=== PATIENT | male | born 1940 | race Caucasian/White ===

== ENCOUNTER → 2018-10-26 | Outpatient (CLI) | payer OTHER | LOC: FIMAGING 10:34 | PROVIDERS: ATTEND Orthopaedic Surgery | DX: Z01.818 Encounter for other preprocedural examination (principal); M17.12 Unilateral primary osteoarthritis, left knee ==

== ENCOUNTER 2018-11-10 05:35 | Observation (INO) | payer OTHER ==
--- NOTE | 2018-10-29 11:38 | GHP ---
He will be an a.m. admission for surgery at [facility] on November 10, 2018. PROBLEM: Left knee arthritis. HISTORY OF PRESENT ILLNESS: The patient is a 78-year-old man admitted for a left total knee arthropl asty. He has been receiving viscosupplementation injections every 6 months for the past few years. The most recent set of injections did not help. He is having increasing pain in his left knee. He h as been using ibuprofen. He had arthroscopic surgery on his left knee in the mid 1970s. He has trie d an claim rep brace. His activities are now very limited because of his left knee pain. He has fail ed nonsurgical treatment and is admitted for a left total knee arthroplasty. PAST MEDICAL HISTORY: He underwent an L3 through L5 lumbar spine fusion in 2013. He is treated for hypothyroidism, cholesterol, and type 2 diabetes. No history of heart disease, stents, DVT, hepatiti s, MRSA staph infection, sleep apnea, or bleeding problems. CURRENT MEDICATIONS: Levothyroxine 175 mcg per day, lovastatin 40 mg per day, metformin extended rel ease 750 mg per day. One baby aspirin per day; he stopped that 5 days in advance of his surgery. ALLERGIES: At age 10, he had some type of reaction to a "mycin" antibiotic. Metal allergy: None. Latex allergy: None. SOCIAL HISTORY: The patient is . He is retired. He does not smoke cigarettes and rarely dri nks alcohol. FAMILY HISTORY: Positive for heart disease. PHYSICAL EXAMINATION: VITAL SIGNS: Height 5 feet 11 inches. Weight 186 pounds. BMI 26.72. EYES: The conjunctivae and sclerae are clear. Pupils are round and reactive. MOUTH: Good oral hygiene. No loose teeth. CHEST: Clear. HEART: Regular rhythm. No murmurs. EXTREMITIES: Pertinent findin gs limited to his left knee. He has a 5-degree flexion contracture and further flexion to 105 degree s. Varus deformity. A small effusion is present. His ligaments are stable. IMAGING: His films show advanced degenerative arthritis in his left knee, primarily involving the me dial compartment. He is bone on bone in the medial compartment. He has moderate medial compartment cartilage space narrowing in the right knee. IMPRESSION: On admission: 1. Left knee advanced medial compartment degenerative arthritis with varus deformity. 2. Treatment for hypothyroidism. 3. Treatment for type 2 diabetes. 4. Treatment for cholesterol. 5. Status post L3 through L5 lumbar spine fusion. PLAN: He will undergo a left total knee arthroplasty. The surgery has been described to him, includ ing the risks, complications, expectations, and recovery time. I stressed the importance of postoper ative physical therapy. I have advised him that a small percentage of people do not get a good resul t with a total knee replacement, and sometimes that cannot be corrected. All his questions have been answered, and he consents to surgery. /[id number]/MODL
[2018-11-10] MEDS ORDERED: DEXAMETHASONE 4 MG/ML VIAL IVP ONE (05:51)
[2018-11-10] MEDS ORDERED: ceFAZolin 2 GM/DEXTROSE 100 ML IV ONE (05:51)
[2018-11-10] MEDS ORDERED: FAMOTIDINE 20 MG TAB PO ONE (05:51)
[2018-11-10] MEDS ORDERED: ACETAMINOPHEN 325 MG TAB PO ONE (05:51)
[2018-11-10] MEDS ORDERED: ONDANSETRON 4 MG/2 ML VIAL IVP ONE (05:51)
[2018-11-10] MEDS ORDERED: GABAPENTIN 300 MG CAP PO ONE (05:51)
[2018-11-10] MEDS ORDERED: POVIDONE-IODINE 20 ML in SODIUM CL IRRIG SOLUTION 500 ML IRR ONE (06:00)
[2018-11-10] MEDS ORDERED: LR 1,000 ML IV ONE (06:05)
[2018-11-10] MEDS ORDERED: TRANEXAMIC ACID 3,000 MG/50 ML BAG IRR ONE (06:52)
[2018-11-10] MEDS ORDERED: VANCOMYCIN 1 GM VIAL ONE (06:52)
[2018-11-10] MEDS ORDERED: ceFAZolin 1 GM/5 ML SYR ONE (06:53)
[2018-11-10] MEDS ORDERED: MIDAZOLAM 2 MG/2 ML VIAL IVP ONE (07:01)
--- NOTE | 2018-11-10 07:01 | PDANEPAE ---
ANE Past Medical History - Cardiovascular History Hx Hypertension: No Hx Arrhythmias: No Hx Chest Pain: No Hx Coronary Artery / Peripheral Vascular Disease: No Hx CHF / Valvular Disease: No Hx Palpitations: No Cardiovascular History Comment: High cholesterol - Pulmonary History Hx COPD: No Hx Asthma/Reactive Airway Disease: No Hx Recent Upper Respiratory Infection: No Hx Oxygen in Use at Home: No Hx Sleep Apnea: No Sleep Apnea Screening Result - Last Documented: Negative - Neurologic History Hx Cerebrovascular Accident: No Hx Seizures: No Hx Dementia: No - Endocrine History Hx Diabetes: Yes Endocrine History Comment: DM II. hypothyroid - Renal History Hx Renal Disorders: Yes Renal History Comment: nephritis at age 10 - Liver History Hx Hepatic Disorders: No - Neurological & Psychiatric Hx Hx Neurological and Psychiatric Disorders: No - Cancer History Hx Cancer: No - Congenital Disorder History Hx Congenital Disorders: No - GI History Hx Gastrointestinal Disorders: No - Other Health History Other Health History: Wears glasses. States has cold feet & right hand is cold. Was told is mild circulation problems. Osteoarthritis. Has partial plate lower right - Chronic Pain History Chronic Pain: No - Surgical History Prior Surgeries: collar surgery at age 14 ANE Review of Systems Review of Systems: - Exercise capacity METS (RN): 4 METS ANE Patient History - Allergies Allergies/Adverse Reactions: No Known Allergies Allergy (Verified 11/03/18 11:50) - Home Medications Home Medications: Ascorbic Acid [Vitamin C] 200 mg PO DAILY 10/28/18 [Last Taken 1 Week Ago ~11/03] Aspirin EC [Aspirin EC 81 mg (*)] 81 mg PO HS 10/28/18 [Last Taken 1 Week Ago ~ 11/03/18] Cyanocobalamin/Folic AC/Vit B6 [B Complex-Folic Acid Tablet] 1 each PO DAILY 12/15 [Last Taken 1 Week Ago ~11/03/18] Levothyroxine [Synthroid 175 mcg (*)] 175 mcg PO DAILY 10/28/18 [Last Taken 05:00] Lovastatin 40 mg PO HS 10/28/18 [Last Taken 2 Days Ago ~11/08/18] Melatonin [Melatonin 5 mg] 10 mg PO HS 10/28/18 [Last Taken 1 Week Ago ~11/03/18 ] Gladstone-3 Fatty Acids [Fish Oil 1000 mg (*)] 1,000 mg PO DAILY 10/28/18 [Last Taken 1 Week Ago ~11/03/18] diphenhydrAMINE [Benadryl 25 MG (*)] 25 mg PO HS 10/28/18 [Last Taken 2 Days Ago ~11/08/18] metFORMIN SR [Glucophage XR 750 mg (*)] 1,500 mg PO DAILY@0800 10/28/18 [Last Taken 2 Days Ago ~11/08/18] Zolpidem Tartrate [Ambien 5MG (*)] 5 mg PO HS PRN 11/03/18 [Last Taken 1 Day Ago ~11/09/18] - NPO status NPO Since - Liquids (Date): 11/09/18 NPO Since - Liquids (Time): 20:00 NPO Since - Solids (Date): 11/09/18 NPO Since - Solids (Time): 19:00 - Smoking Hx Smoking Status: Former smoker - Family Anes Hx Family Hx Anesthesia Complications: none ANE Labs/Vital Signs - Vital Signs Blood Pressure: 148/74 Heart Rate: 87 Respiratory Rate: 12 O2 Sat (%): 94 Height: 179.07 cm Weight: 87.543 kg ANE Physical Exam - Airway Neck exam: FROM Mallampati Score: Class 2 Mouth exam: normal dental/mouth exam - Pulmonary Pulmonary: no respiratory distress - Cardiovascular Cardiovascular: regular rate and rhythym - ASA Status ASA Status: II ANE Anesthesia Plan Anesthesia Plan: spinal Regional Anesthesia: adductor canal FNB
--- NOTE | 2018-11-10 07:05 | PDHPUP ---
History & Physical Update H&P update statement: This history and physical update is based on an assessment of the patient which was completed after admission or registration (within 24 hours), but prior to the surgery/procedure. H&P update: H&P reviewed & patient examined
[2018-11-10] MEDS ORDERED: MIDAZOLAM 2 MG/2 ML VIAL ONE (07:06)
[2018-11-10] MEDS ORDERED: PROPOFOL/EMULSION 500 MG/50 ML BOTTLE IV ONE (07:41)
[2018-11-10] MEDS ORDERED: PROPOFOL 200 MG/20 ML VIAL ONE (07:55)
[2018-11-10] MEDS ORDERED: TRANEXAMIC ACID 3,000 MG in NS (SYRINGE) 50 ML IRR ONE (08:30)
[2018-11-10] MEDS ORDERED: ROPIVACAINE 0.2% 80 MG, EPINEPHrine 0.2 MG, KETOROLAC TROMETHAMINE 30 MG in SYRINGE 0 ML IU ONE (08:30)
[2018-11-10] MEDS ORDERED: TRANEXAMIC ACID 1,000 MG in NS 100 ML IV ONE (08:30)
[2018-11-10] MEDS ORDERED: PHENYLEPHRINE HCL 100 MCG/ML SYR ONE (08:42)
[2018-11-10] MEDS ORDERED: LIDOCAINE 2% 5 ML SDV ONE (08:43)
--- NOTE | 2018-11-10 09:50 | POSTOPPROG ---
Post Op Note Date of Operation: 11/10/18 Surgeon: Kevin Thompson Recapper: Daniel/Carolyn Anesthesiologist: Rony Anesthesia: IV Sedation, Spinal Post-op Diagnosis: left knee arthritis Procedure: left TKA Fady Inf/Abcess present in the surg proc area at time of surgery?: No EBL: 50-100 (ACB in PACU)
[2018-11-10] MEDS ORDERED: NALOXONE HCL 0.4 MG/ML INJ IVP PRN (09:51)
[2018-11-10] MEDS ORDERED: ONDANSETRON 4 MG/2 ML VIAL IVP PRN ×2 (09:51→10:05)
[2018-11-10] MEDS ORDERED: fentaNYL 100 MCG/2 ML INJ IVP PRN (09:51)
[2018-11-10] MEDS ORDERED: LACTULOSE 20 GM/30 ML UDCUP PO PRN (10:05)
[2018-11-10] MEDS ORDERED: ONDANSETRON DISINTEGRATING 4 MG TAB PO PRN (10:05)
[2018-11-10] MEDS ORDERED: traMADol 50 MG TAB PO PRN (10:05)
[2018-11-10] MEDS ORDERED: diphenhydrAMINE 25 MG CAP PO PRN (10:05)
[2018-11-10] MEDS ORDERED: DIPHENOXYLATE/ATROPINE LOMOTIL 1 TAB PO PRN (10:05)
[2018-11-10] MEDS ORDERED: METOCLOPRAMIDE 10 MG/2 ML VIAL IVP PRN (10:05)
[2018-11-10] MEDS ORDERED: POLYETHYLENE GLYCOL 3350 17 GM PKT PO PRN (10:05)
[2018-11-10] MEDS ORDERED: TEMAZEPAM 15 MG CAP PO PRN (10:05)
[2018-11-10] MEDS ORDERED: MAGNESIUM HYDROXIDE 30 ML UDCUP PO PRN (10:05)
[2018-11-10] MEDS ORDERED: CYCLOBENZAPRINE 10 MG TAB PO PRN (10:05)
[2018-11-10] MEDS ORDERED: PROMETHAZINE HCL 25 MG SUPPR PR PRN (10:05)
[2018-11-10] MEDS ORDERED: PROMETHAZINE HCL 25 MG/ML INJ IVP PRN (10:05)
[2018-11-10] MEDS ORDERED: NS 500 ML IV PRN (10:05)
[2018-11-10] MEDS ORDERED: BISACODYL 10 MG SUPP PR PRN (10:05)
[2018-11-10] MEDS ORDERED: LR 1,000 ML IV SCH (10:30)
--- NOTE | 2018-11-10 10:32 | POSTANESTH ---
Post Anesthetic Evaluation Cardiovascular Status: Normal, Stable Respiratory Status: Normal, Stable Level of Consciousness/Mental Status: Can Participate in Eval Pain Control: Adequate, Prn Tx Ordered Nausea/Vomiting Control: Adequate, Prn Tx Ordered Complications Possibly Related to Anesthesia: None Noted
--- NOTE | 2018-11-10 10:50 | GOP ---
DATE OF OPERATION: 11/10/2018 SURGEON: Kevin Thompson MD ART SALES CONSULTANT: FERNANDA Mancia. Jc Leon CFA. ANESTHESIA: A combination of Marcaine, spinal, IV sedation, and adductor canal block. ANESTHESIOLOGIST: Matty Uribe MD. PREOPERATIVE DIAGNOSIS: Left knee severe degenerative arthritis with varus deformity. POSTOPERATIVE DIAGNOSIS: Left knee severe degenerative arthritis with varus deformity. PROCEDURE PERFORMED: A left total knee arthroplasty, Fady Lisa robot assisted. FINDINGS: DESCRIPTION OF PROCEDURE: The patient was given 2 g of IV Ancef preoperatively within 60 minutes of surgery. He also received 1000 mg of IV tranexamic acid. He was placed on the operating room table and given spinal anesthesia with Marcaine by Dr. Uribe. He was then placed supine and given IV se dation. A Valdez catheter was not used. He wore a KYLIE stocking and SCD on the nonoperative leg. His right lower extremity was prepped with ChloraPrep from the upper thigh tourniquet to the tips of the toes. It was draped free using sterile sheets, stockinette, and Ioban plastic adhesive drape. The lower leg was wrapped with compressive Coban. The World Health Organization time-out was performed to verify the correct patient identity and the c orrect surgical side and site. The Andreas time-out was also performed. The [employer] leg holding kristan ce was sterilely attached to the operating room table and used throughout the procedure to help posit ion the knee. Two 3 mm partially threaded pins were inserted in a bicortical fashion in the anterome dial cortex of the tibia about 4 inches distal to the tibial tubercle. At this point, the leg was ex sanguinated with a 6-inch Noah wrap, and the pneumatic tourniquet was inflated to 250 mmHg. A straight midline incision was made centered on the patella. Subcutaneous tissues were sharply divi ded, and hemostasis was obtained using electrocautery. A medial subcutaneous flap was developed, and the capsule and synovium were opened in medial parapatellar fashion. His medial capsule and periost eum were lightly elevated off the rim of the medial tibial plateau. Two 3 mm partially threaded pins were inserted into the medial aspect of the distal femur in the supr acondylar region through the incision. The femoral checkpoint was inserted anterior and just between the 2 pins. The tibial check point was inserted onto the anteromedial cortex of the tibia about an inch distal to the joint line. The computer arrays were attached, and I confirmed that both the femu r and tibia arrays were visualized by the computer. In order to improve the exposure, the patella was prepared first. The original thickness of the moon lla was measured. Peripheral osteophytes were removed. I cut a flat surface on the back of the moon lla. He was sized for a 38 mm asymmetric patella which was 11 mm in thickness. I removed enough bon e from the patella such that the remaining bone plus the thickness of the patellar component recreate d the original thickness of the patella. The composite thickness was 25 mm. The bony anatomy of the knee was registered on the computer, starting with the center rotation of the femoral head followed by the medial and lateral malleoli. The femoral and tibial surface anatomy wa s also registered. I performed dynamic joint balancing. He was slightly tight medially. The preoperative plan called f or a size 6 femur. In order to achieve proper gap balancing, I shifted the femoral component 2 mm an teriorly. I changed the degree of flexion to 4 degrees with 2 degrees of external rotation. I moved the whole femur approximately 1 mm. This gave me good joint balancing and 90 degrees of flexion and full extension with 18-19 mm medial and lateral gaps in both flexion and extension. The robotic saw was brought in and registered. I made the appropriate cuts on the distal femur. The robot was then used to make the proximal tibial cut. I used the appropriate jig to create the notch in the femur using the power sagittal saw and an osteo tome to accommodate the posterior stabilized femoral component. The 6 trial femoral component was ap plied. I was careful that it was centered on the distal femur. The posterior compartment was cleared of meniscal remnants. Osteophytes were removed from the back o f the femoral condyles. 40 mL of the joint anesthetic cocktail was injected into the posterior capsu le, quadriceps muscle and tendon areas, and the subcutaneous tissues along the skin edges. The tibia was sized for a size 5 component. I used the central thin punch. I then drilled the 4 add itional fixation holes in the tibial surface for a press-fit tibial component. He had very good qual ity bone, and I was intending to use press-fit components. With the trial components in place, I christina ected the 9 mm posterior stabilized tibial insert. The knee came to full extension and flexed to 135 degrees. His collateral ligaments were stable and balanced in full extension and 90 degrees of flex ion. His computer gaps were 18-19 mm of medial and lateral gaps in 90 degrees of flexion and full ex tension. The press-fit tibial component was inserted and tapped securely into place. It was very tight. The femoral component was tapped securely into place and again was an excellent fit. The 9 mm Triathlon plastic insert was inserted and locked into place. The 38 mm asymmetric Triathlon titanium patellar component was inserted. I used a tightening device to compress it onto the patellar bone. The knee came to full extension and flexed to 130 degrees. The tourniquet was deflated. Total tourniquet time was 1 hour and 23 minutes. The knee was thorough ly irrigated with a dilute Betadine solution. 50 cc of tranexamic acid were instilled into the joint and left there. The vastus medialis portion of the extensor mechanism was repaired with several interrupted figure-of -eight #2 FiberWire sutures. The capsule and synovium were closed first with multiple interrupted fi [id number] PDS sutures, followed by a running #2 barbed Ethicon Stratafix PDO suture. Subcutane ous tissues were closed with a running 0 barbed Ethicon Stratafix Monoderm suture. The skin was clos ed with a running 3-0 barbed Ethicon Stratafix Monoderm subcuticular suture. The skin was sealed wit h half-inch Steri-Strips. The wound was covered with a large sterile Mepilex waterproof dressing. T he knee was wrapped with a 6-inch compressive wrap. A long-leg KYLIE stocking and SCD were applied, fo llowed by the cooling device. I used a size 6 [place] Triathlon press-fit posterior stabilized femoral component, size 5 Triathlon Tritanium press-fit tibial component, a 38 mm x 10 x 11 mm asymmetric patellar component press-fit, a nd a 9 mm posterior stabilized tibial insert. The sponge and needle count were correct on 2 occasions. He was awakened from anesthesia, transferred to his gurney, and taken to PACU in satisfactory conditi on. There were no recognized intraoperative complications. In the PACU for additional postoperative pain control, Dr. Rodriguze performed an adductor canal b lock with an indwelling adductor canal catheter. Edmundo Sanchez and Jc Leon acted as surgical assistants. Their assistance was a medical necess ity. Copy requested to: FERNANDA Bacon [facility] Jc Leon [facility] /[id number]/MODL
[2018-11-10] MEDS: KETOROLAC 15 MG/1 ML SDV IVP SCH ×2 (12:03→17:33)
[2018-11-10] MEDS: ACETAMINOPHEN 325 MG TAB PO SCH ×2 (12:03→17:33)
[2018-11-10] MEDS: oxyCODONE IR 5 MG TAB PO PRN ×3 (13:15→22:37)
[2018-11-10] MEDS: ceFAZolin 2 GM/DEXTROSE 100 ML IV SCH ×2 (15:14→22:38)
[2018-11-10] MEDS: ZOLPIDEM TARTRATE 5 MG TAB PO PRN ×2 (20:31→22:39)
[2018-11-10] MEDS: FAMOTIDINE 20 MG TAB PO SCH (20:32)
[2018-11-10] MEDS: MELATONIN 3 MG TAB PO SCH ×2 (20:32→22:39)
[2018-11-10] MEDS: ASPIRIN 325 MG TAB PO SCH (20:32)
[2018-11-10] MEDS: SENNOSIDES/DOCUSATE SODIUM TAB PO SCH (20:33)
[2018-11-10] MEDS ORDERED: PRAVASTATIN SODIUM 40 MG TAB PO SCH (21:00)
[2018-11-11] MEDS: KETOROLAC 15 MG/1 ML SDV IVP SCH ×2 (00:04→05:59)
[2018-11-11] MEDS: ACETAMINOPHEN 325 MG TAB PO SCH ×3 (00:04→11:36)
[2018-11-11 07:44] VITALS: BP 113/55
[2018-11-11] MEDS: ASPIRIN 325 MG TAB PO SCH (07:59)
[2018-11-11] MEDS: SENNOSIDES/DOCUSATE SODIUM TAB PO SCH (07:59)
[2018-11-11] MEDS: FAMOTIDINE 20 MG TAB PO SCH (07:59)
[2018-11-11] MEDS ORDERED: FERROUS SULFATE 325 MG TAB PO SCH (08:00)
[2018-11-11] MEDS ORDERED: metFORMIN SR 750 MG TAB.SR PO SCH (08:00)
[2018-11-11] MEDS ORDERED: LEVOTHYROXINE 175 MCG TAB PO SCH (09:00)
[2018-11-11] MEDS ORDERED: ROPIVACAINE HCL 150 MG/30 ML INJ ONE (09:29)
[2018-11-11] MEDS ORDERED: LIPID EMULSION 20% 100 ML IV PRN (09:30)
--- NOTE | 2018-11-11 09:35 | SOAPPROG ---
SOAP Progress Note Assessment/Plan: Assessment: Afebrile. Awake and alert. Vital signs stable. Minimal pain so far. His dressing is dry. He has been up and walking in the [place] and has completed stairs. Postop films look excellent. Plan: Discharge today. 11/11/18 09:35 Objective: Vital Signs Temp Pulse Resp BP Pulse Ox 36.4 C 79 16 113/55 L 94 11/11/18 07:43 11/11/18 07:43 11/11/18 07:43 11/11/18 07:43 11/11/18 07:43 Laboratory Results 11/11/18 05:05 11/10/18 11/11/18 11/12/18 05:59 05:59 05:59 Intake Total 3695 Output Total 500 Balance 3195 ICD10 Worksheet Patient Problems: Problems Problem Status Onset Osteoarthritis of left knee Acute
--- NOTE | 2018-11-11 11:14 | PDPAINCON ---
Pain Management Consultation Patient referred by : Donna - Subjective Pain at rest (/10): 0 Pain with activity (/10): 4 Pain is: low, well controlled Activity: able to ambulate, out of bed with assistance - Objective Technique: continuous peripheral nerve block Site: femoral Continuous infusion: ropivicaine Catheter site: clean, dry, intact, no erythema/edema/exudate Sensory and motor exam: consistent with block Vital signs: stable - Assessment/Plan Assessment/Plan: pain well-controlled, continue current mgmt (Pt doing well. Minimal pain. AC catheter bolused with 30 ml 0.5% Ropivacaine and removed.)
--- NOTE | 2018-11-11 11:15 | GDS ---
ADMISSION DIAGNOSIS: Left knee severe degenerative arthritis. DISCHARGE DIAGNOSIS: Left knee severe degenerative arthritis. OPERATION PERFORMED: 11/10/2018, a left total knee arthroplasty, Fady robot assisted. POSTOPERATIVE COMPLICATIONS: None. CONDITION ON DISCHARGE: Improved. DESCRIPTION OF HOSPITAL COURSE: The patient was admitted to the hospital on the morning of surgery. His admission CBC, electrolytes, BUN, and creatinine were all normal. The same day, under a combina tion of Marcaine spinal, IV sedation, and adductor canal block, he underwent a Fady-assisted left tot al knee arthroplasty. Postoperatively, he was treated with multimodal DVT prophylaxis, including asp irin. He was seen by Physical Therapy and made excellent progress with ambulation, knee range of mot ion and stairs. By the time of discharge, he was afebrile and was independent walking with a walker. DISPOSITION: The patient is discharged to his home. Continue KYLIE stockings for 1 week. He will go to to outpatient physical therapy. He may progress to full weightbearing on the left as tolerated. Continue aspirin 325 mg p.o. daily for 21 days. He has prescriptions for oxycodone, tramadol and Britney ebrex for pain control. I will see him back in the office on November 26, 2018. If there are any pro blems, he is to call me at the office. /[id number]/MODL
[2018-11-11] MEDS: oxyCODONE IR 5 MG TAB PO PRN (11:36)
--- NOTE | 2018-11-11 14:44 | ASMTCMCOM ---
CM Note CM Note Notes: Pt medically stable for d/c, PT rec outpatient. No CM d/c needs identified. Date Signed: 11/11/2018 02:44 PM Electronically Signed By:NELIDA Jennings
== END 2018-11-11 12:11 | disposition home or self-care (01) ==
LOC: F3N 05:35
PROVIDERS: ADMIT Orthopaedic Surgery; ATTEND Orthopaedic Surgery
DX: M17.12 Unilateral primary osteoarthritis, left knee (principal); Z98.1 Arthrodesis status; E03.9 Hypothyroidism, unspecified; E78.00 Pure hypercholesterolemia, unspecified; E11.9 Type 2 diabetes mellitus without complications
CPT/HCPCS: 27447; 64450; 73560; 77073; 88311; 97110; 97116; 97161; 97165; 97530; C1776; G0378; J0171; J0690; J1100; J1885; J2250; J2370; J2405; J2704; J2795; J3370

== ENCOUNTER 2018-11-14 18:22 | Emergency (ER) | payer OTHER ==
[2018-11-14] MEDS ORDERED: LORazepam 2 MG/ML INJ IVP ONE (19:27)
--- NOTE | 2018-11-14 19:27 | EDPHY ---
H & P Time Seen by Provider: 11/14/18 18:56 HPI/ROS: CHIEF COMPLAINT: Anxiety HISTORY OF PRESENT ILLNESS: Patient is a 78-year-old male who presents emergency department feeling extremely anxious. The patient headache total knee replacement last Friday by Dr. Thompson. He was discharged on Friday. By Friday evening he started to feel anxious. He the OxyContin was discontinued and he was started on tramadol. His anxiety has continued to worsen. Today after discussion with the on-call physician he took Valium 2 mg at 2:30 p.m.. This improved his symptoms for roughly 45 min. His anxiety has returned. He had a remote history of anxiety but this is not typical. Patient' s also states that he has had increased redness surrounding his left knee surgical site. No fevers or chills. No nausea vomiting. No chest pain or shortness of breath. No cough. REVIEW OF SYSTEMS: 10 systems were reveiwed and are negative with the exception of the elements mentioned in the history of present illness. Past Medical/Surgical History: Includes diabetes type 2, hypothyroidism, high cholesterol, hypertension Past surgical history: Lumbar fusion, left total knee replacement Social history: Patient does not smoke Smoking Status: Former smoker Physical Exam: 36.8, 154/79, 96, 18, 97% on room air GENERAL: The anxious appearing, in no acute distress, alert. HEENT: Eyes normal to inspection, normal pharynx, no signs of dehydration. NECK: Normal, supple. RESPIRATORY: Clear to auscultation bilaterally, no rales, rhonchi or wheezing. CVS: Regular rate and rhythm, no rubs, murmurs, or gallops. ABDOMEN: Soft, nontender, nondistended, no organomegaly. BACK: Normal to inspection, no CVA tenderness. SKIN: Normal color, no rash, warm, dry. No pallor. See lower extremity exam EXTREMITIES: Patient's left lower extremity is mildly swelling. The dressing is clean, dry and intact. However, there is some erythema extending from the dressing site. Anterior coonnor is also mildly erythematous. It is slightly warm to the touch. No pedal edema, no calf tenderness, no Homans sign or cords. NEURO/PSYCH: Alert and oriented, anxious, normal motor sensory exam. Constitutional: Initial Vital Signs Temperature (C) 36.8 C 11/14/18 18:32 Heart Rate 96 11/14/18 18:32 Respiratory Rate 18 11/14/18 18:32 Blood Pressure 154/79 H 11/14/18 18:32 O2 Sat (%) 97 11/14/18 18:32 O2 Delivery Mode Nasal Cannula O2 (L/minute) 2 Allergies/Adverse Reactions: No Known Allergies Allergy (Verified 11/14/18 18:35) Home Medications: Medication Instructions Recorded Ascorbic Acid [Vitamin C] 200 mg PO DAILY 10/28/18 Cyanocobalamin/Folic AC/Vit B6 [B 1 each PO DAILY 10/28/18 Complex-Folic Acid Tablet] Levothyroxine [Synthroid 175 mcg 175 mcg PO DAILY 10/28/18 (*)] Lovastatin 40 mg PO HS 10/28/18 Melatonin [Melatonin 5 mg] 10 mg PO HS 10/28/18 Vida-3 Fatty Acids [Fish Oil 1000 1,000 mg PO DAILY 10/28/18 mg (*)] diphenhydrAMINE [Benadryl 25 MG 25 mg PO HS 10/28/18 (*)] metFORMIN SR [Glucophage XR 750 mg 1,500 mg PO DAILY@0800 10/28/18 (*)] Zolpidem Tartrate [Ambien 5MG (*)] 5 mg PO HS PRN 11/03/18 Acetaminophen [Tylenol 325mg (*)] 650 mg PO Q6HRS tab 11/11/18 Aspirin [Aspirin 325 mg (*)] 325 mg PO DAILY tab 11/11/18 Ferrous Sulfate [Ferrous Sulf 325 325 mg PO BIDMEAL tab 11/11/18 MG (*)] Ondansetron Odt [Zofran Odt 4 mg 4 mg PO Q4HRS PRN tab 11/11/18 (*)] Sennosides/Docusate Sodium 1 - 2 tab PO BID tab 11/11/18 [Senokot-S] celeCOXIB [Celebrex (*)] 200 mg PO DAILY cap 11/11/18 oxyCODONE IR [Oxycodone Ir (*)] 5 - 10 mg PO Q3HRS PRN tab 11/11/18 traMADol [Ultram 50 mg (*)] 50 mg PO Q6HRS PRN tab 11/11/18 Cephalexin [Keflex (*)] 500 mg PO QID 7 Days cap 11/14/18 LORazepam [Ativan (*)] 1 mg PO TID #11 tab 11/14/18 Medical Decision Making ED Course/Re-evaluation: In the emergency department I discussed possible etiologies with the patient and . I answered all her questions. IV was placed. Laboratory studies were obtained. Due to the redness of the leg cultures were also obtained. EKG shows normal sinus rhythm, normal rate, normal axis, normal intervals. There are no ST or T-wave abnormalities. EKG is normal as interpreted by me. Patient was given normal saline 500 mL IV. He was given Ativan 2 mg IV followed for anxiety. Patient's white count is normal. The patient is slightly anemic. Chemistry panel unremarkable. ESR is elevated at 48. C-reactive protein is 206. On recheck the patient is feeling much better. His anxiety is controlled. He has no significant knee pain. No change in appearance of his knee. I consulted with Dr. Pendleton. He recommended the patient receive Ancef 2 g IV in be discharged with Keflex. Patient will follow up with Dr. Thompson in the office. He was given warnings prior to leaving. Differential Diagnosis: My differential includes but is not limited to anxiety, cellulitis, abscess, infected joint, bacteremia, sepsis - Data Points Laboratory Results: Laboratory Results 11/14/18 19:10 11/14/18 19:10 11/14/18 11/14/18 19:10 19:10 WBC 8.52 10^3/uL 10^3/uL (3.80-9.50) RBC 3.62 10^6/uL L 10^6/uL (4.40-6.38) Hgb 11.1 g/dL L g/dL (13.7-17.5) Hct 32.7 % L % (40.0-51.0) MCV 90.3 fL fL (81.5-99.8) MCH 30.7 pg pg (27.9-34.1) MCHC 33.9 g/dL g/dL (32.4-36.7) RDW 12.9 % % (11.5-15.2) Plt Count 206 10^3/uL 10^3/uL (150-400) MPV 10.2 fL fL (8.7-11.7) Neut % (Auto) 76.5 % H % (39.3-74.2) Lymph % (Auto) 10.6 % L % (15.0-45.0) Hettinger % (Auto) 10.1 % % (4.5-13.0) Eos % (Auto) 1.8 % % (0.6-7.6) Baso % (Auto) 0.6 % % (0.3-1.7) Nucleat RBC Rel Count 0.0 % % (0.0-0.2) Absolute Neuts (auto) 6.53 10^3/uL H 10^3/uL (1.70-6.50) Absolute Lymphs (auto) 0.90 10^3/uL L 10^3/uL (1.00-3.00) Absolute Monos (auto) 0.86 10^3/uL H 10^3/uL (0.30-0.80) Absolute Eos (auto) 0.15 10^3/uL 10^3/uL (0.03-0.40) Absolute Basos (auto) 0.05 10^3/uL 10^3/uL (0.02-0.10) Absolute Nucleated RBC 0.00 10^3/uL 10^3/uL (0-0.01) Immature Gran % 0.4 % % (0.0-1.1) Immature Gran # 0.03 10^3/uL 10^3/uL (0.00-0.10) ESR 48 MM/HR H MM/HR (0-20) Sodium 139 mEq/L mEq/L (135-145) Potassium 4.2 mEq/L mEq/L (3.5-5.2) Chloride 103 mEq/L mEq/L (97-110) Carbon Dioxide 26 mEq/l mEq/l (22-31) Anion Gap 10 mEq/L mEq/L (6-14) BUN 19 mg/dL mg/dL (7-23) Creatinine 1.1 mg/dL mg/dL (0.7-1.3) Estimated GFR > 60 Glucose 120 mg/dL H mg/dL (70-100) Calcium 8.6 mg/dL mg/dL (8.5-10.4) C-Reactive Protein 206.7 mg/L H mg/L (<10.0) Medications Given: Discontinued Medications Lorazepam (Ativan Injection) 2 mg IVP EDNOW ONE Stop: 11/14/18 19:28 Last Admin: 11/14/18 19:34 Dose: 2 mg Departure - Departure Disposition: Home, Routine, Self-Care Clinical Impression: Anxiety Cellulitis Qualifiers: Site of cellulitis: extremity Site of cellulitis of extremity: lower extremity Laterality: left Qualified Code(s): L03.116 - Cellulitis of left lower limb Condition: Fair Instructions: Cellulitis (ED), Anxiety (ED) Additional Instructions: The take your entire course of antibiotics as directed. On Friday morning call Dr. Thompson is office to make an appointment. If you have increased redness, swelling or fever return to the emergency department. Referrals: Franklyn Lewis MD [Primary Care Provider] - As per Instructions Kevin Thompson MD [Medical Doctor] - 11/16/18 Prescriptions: Cephalexin [Keflex (*)] 500 mg PO QID 7 Days cap LORazepam [Ativan (*)] 1 mg PO TID #11 tab
[2018-11-14 19:30] LABS: PLATELET COUNT 206 10^3/uL (150-400)
[2018-11-14] MEDS ORDERED: LORAZEPAM 1 MG PREPACK#4 BTL TAKEHOME ONE (20:48)
[2018-11-14] MEDS ORDERED: ceFAZolin 2 GM/DEXTROSE 100 ML IV ONE (20:49)
--- NOTE | 2018-11-14 20:51 | CPEKG ---
Test Reason : OPEN Blood Pressure : / mmHG Vent. Rate : 097 BPM Atrial Rate : 097 BPM P-R Int : 213 ms QRS Dur : 082 ms QT Int : 330 ms P-R-T Axes : 054 003 044 degrees QTc Int : 419 ms Sinus rhythm Borderline prolonged OK interval Low voltage, precordial leads Confirmed by Eli Landon [id number]) on 11/14/2018 8:50:43 PM Referred By: Confirmed By:Eli Landon
[2018-11-14 22:03] VITALS: BP 162/82
== END 2018-11-14 22:03 | disposition home or self-care (01) ==
DX: F41.9 Anxiety disorder, unspecified (principal); L03.116 Cellulitis of left lower limb; E11.9 Type 2 diabetes mellitus without complications; I10 Essential (primary) hypertension; E78.00 Pure hypercholesterolemia, unspecified; Z79.4 Long term (current) use of insulin; Z79.899 Other long term (current) drug therapy
CPT/HCPCS: 93005; 96374; 99284; J0690; J2060